=== PATIENT | female | born 1995 | race American Indian/Alaskan Native ===

== ENCOUNTER 2017-04-05 14:10 | Emergency (ER) | payer OTHER, BC ==
[2017-04-05] MEDS ORDERED: MOTRIN PO ONE (17:54)
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
[2017-04-05 18:58] VITALS: BP 116/68
== END 2017-04-05 18:57 | disposition home or self-care (01) ==
LOC: ED 14:10
DX: M54.5 Low back pain (principal); M54.2 Cervicalgia; F12.10 Cannabis abuse, uncomplicated; F17.200 Nicotine dependence, unspecified, uncomplicated; Z88.0 Allergy status to penicillin; V43.52XA Car driver injured in collision with other type car in traffic accident, initial encounter; Y93.9 Activity, unspecified; Y99.9 Unspecified external cause status; Y92.410 Unspecified street and highway as the place of occurrence of the external cause
CPT/HCPCS: 99282